=== PATIENT | female | born 1955 | race Caucasian/White ===

== ENCOUNTER 2022-01-27 17:13 | Emergency (ER) | payer MEDICARE ==
[2022-01-27] MEDS ORDERED: Sodium Chloride 0.9% 10 ML Syringe FLUSH PRN (17:42)
== END 2022-01-27 19:52 | disposition home or self-care (01) ==
LOC: JD.ED 17:13
DX: J90 Pleural effusion, not elsewhere classified (principal); I10 Essential (primary) hypertension; Z88.8 Allergy status to other drugs, medicaments and biological substances; Z79.01 Long term (current) use of anticoagulants; Z79.899 Other long term (current) drug therapy
CPT/HCPCS: 36415; 71046; 71046-26; 80053; 85025; 85610; 99284; 99285-25

== ENCOUNTER 2022-01-30 15:34 | Emergency (ER) | payer MEDICARE ==
[~2022-01-30 15:34] MED LIST: Lidocaine 1% with EPINEPHrine 1:100,000 20 ML MDV INJECT ONE
== END 2022-01-30 16:30 ==
LOC: JD.ED 15:34
DX: J90 Pleural effusion, not elsewhere classified (principal)
CPT/HCPCS: 32554; 71045; 71045-26; 99283-25; 99285

== ENCOUNTER 2022-02-13 12:25 | Emergency (ER) | payer MEDICARE | END 2022-02-13 20:00 | disposition home or self-care (01) | LOC: JD.ED 12:25 | DX: J90 Pleural effusion, not elsewhere classified (principal); I10 Essential (primary) hypertension; Z88.8 Allergy status to other drugs, medicaments and biological substances; Z79.01 Long term (current) use of anticoagulants; Z79.899 Other long term (current) drug therapy; Z86.16 Personal history of COVID-19 | CPT/HCPCS: 32554; 71045; 71045-26; 71046; 71046-26; 99283; 99284-25 ==

== ENCOUNTER 2022-02-23 09:05 | Emergency (ER) | payer MEDICARE ==
[2022-02-23] MEDS ORDERED: Morphine 2 MG/ML SYRINGE IVPUSH ONE (13:51)
== END 2022-02-23 14:48 ==
LOC: JD.ED 09:05
DX: J90 Pleural effusion, not elsewhere classified (principal); I10 Essential (primary) hypertension; Z79.01 Long term (current) use of anticoagulants; Z79.899 Other long term (current) drug therapy; Z88.8 Allergy status to other drugs, medicaments and biological substances
CPT/HCPCS: 36415; 71045; 80053; 84484; 85025; 93005; 96374; 99285; J2270

== ENCOUNTER 2022-03-01 19:31 | Emergency (ER) | payer MEDICARE ==
[2022-03-01] MEDS ORDERED: Sodium Chloride 0.9% 1,000 ML IV ONE (20:14)
[2022-03-01] MEDS ORDERED: Ondansetron 4 MG/2 ML SDV IVPUSH ONE (20:14)
[2022-03-01] MEDS ORDERED: HYDROmorphone 0.5 MG/0.5 ML Syringe IVPUSH ONE ×2 (20:14→22:59)
== END 2022-03-01 23:24 | disposition home or self-care (01) ==
LOC: JD.ED 19:31
DX: G89.3 Neoplasm related pain (acute) (chronic) (principal); R11.0 Nausea; I10 Essential (primary) hypertension; Z79.01 Long term (current) use of anticoagulants; Z79.899 Other long term (current) drug therapy; Z88.8 Allergy status to other drugs, medicaments and biological substances
CPT/HCPCS: 36415; 80053; 83735; 85025; 96374; 96375; 96376; 99284; J1170; J2405; J7030

== ENCOUNTER 2022-03-07 06:08 | Emergency (ER) | payer MEDICARE | END 2022-03-07 08:22 | disposition home or self-care (01) | LOC: JD.ED 06:08 | DX: J91.0 Malignant pleural effusion (principal); I10 Essential (primary) hypertension; Z88.8 Allergy status to other drugs, medicaments and biological substances; Z79.01 Long term (current) use of anticoagulants; Z79.899 Other long term (current) drug therapy | CPT/HCPCS: 36415; 71045; 71045-26; 85610; 99284; 99285-25 ==

== ENCOUNTER 2022-03-13 06:47 | Inpatient (IN) | payer MEDICARE, MEDICAID ==
[2022-03-13] MEDS ORDERED: Morphine 2 MG/ML SYRINGE IVPUSH ONE ×2 (09:07→10:25)
[2022-03-13 09:53] LABS: ESTIMATED GFR > 60 mL/min (>60)
[2022-03-13] MEDS: Ondansetron 4 MG Tab.DIS PO PRN (12:59)
[2022-03-13] MEDS: HYDROmorphone 0.5 MG/0.5 ML Syringe IVPUSH PRN ×3 (12:59→17:22)
[2022-03-13] MEDS: Nortriptyline 25 MG Cap PO SCH (17:22)
[2022-03-13] MEDS: Apixaban 5 MG Tab PO SCH (21:31)
[2022-03-13] MEDS: oxyCODONE ER 10 MG TAB.ER PO SCH (21:31)
[2022-03-13] MEDS: oxyCODONE ER 20 MG TAB.ER PO SCH (21:32)
[2022-03-14] MEDS ORDERED: Bisacodyl 10 MG Supp RECTAL ONE (02:48)
[2022-03-14] MEDS: HYDROmorphone 0.5 MG/0.5 ML Syringe IVPUSH PRN ×2 (02:58→05:43)
[2022-03-14 06:38] LABS: ESTIMATED GFR > 60 mL/min (>60)
[2022-03-14] MEDS: HYDROmorphone 1 MG/ML Syringe IVPUSH PRN ×4 (08:03→22:24)
[2022-03-14] MEDS: oxyCODONE ER 20 MG TAB.ER PO SCH ×2 (09:06→20:40)
[2022-03-14] MEDS: oxyCODONE ER 10 MG TAB.ER PO SCH ×2 (09:07→20:43)
[2022-03-14] MEDS: Lisinopril 20 MG Tab PO SCH (09:08)
[2022-03-14] MEDS: Apixaban 5 MG Tab PO SCH ×2 (09:09→20:40)
[2022-03-14] MEDS: Spironolactone 25 MG Tab PO SCH (09:10)
[2022-03-14] MEDS: Dexamethasone 1 MG/ML Oral Drops 30 ML Bottle PO SCH (09:10)
[2022-03-14] MEDS: Ondansetron 4 MG Tab.DIS PO PRN (14:28)
[2022-03-14] MEDS: Nortriptyline 25 MG Cap PO SCH (17:59)
[2022-03-14] MEDS: Pravastatin 20 MG Tab PO SCH (20:40)
[2022-03-15] MEDS: HYDROmorphone 1 MG/ML Syringe IVPUSH PRN ×5 (04:50→23:26)
[2022-03-15] MEDS ORDERED: Bisacodyl 10 MG Supp RECTAL ONE (06:55)
[2022-03-15 08:54] LABS: ESTIMATED GFR > 60 mL/min (>60)
[2022-03-15] MEDS: oxyCODONE ER 20 MG TAB.ER PO SCH (09:18)
[2022-03-15] MEDS: oxyCODONE ER 10 MG TAB.ER PO SCH (09:19)
[2022-03-15] MEDS: Spironolactone 25 MG Tab PO SCH (09:21)
[2022-03-15] MEDS: Lisinopril 20 MG Tab PO SCH (09:21)
[2022-03-15] MEDS: Apixaban 5 MG Tab PO SCH ×2 (09:21→20:37)
[2022-03-15] MEDS: Dexamethasone 1 MG/ML Oral Drops 30 ML Bottle PO SCH (09:22)
[2022-03-15] MEDS: fentaNYL 75 MCG/HR Transdermal Patch TRDERM SCH (11:59)
[2022-03-15] MEDS: Lubiprostone 24 MCG Cap PO SCH ×2 (13:12→17:28)
[2022-03-15] MEDS: Nortriptyline 25 MG Cap PO SCH (17:33)
[2022-03-15] MEDS: Pravastatin 20 MG Tab PO SCH (20:37)
[2022-03-15] MEDS: oxyCODONE 5 MG Tab PO SCH (20:37)
[2022-03-16] MEDS: oxyCODONE 5 MG Tab PO SCH ×7 (02:45→23:44)
[2022-03-16] MEDS: HYDROmorphone 1 MG/ML Syringe IVPUSH PRN ×6 (06:48→23:45)
[2022-03-16 07:18] LABS: ESTIMATED GFR > 60 mL/min (>60)
[2022-03-16] MEDS: Apixaban 5 MG Tab PO SCH ×2 (08:31→20:07)
[2022-03-16] MEDS: Lisinopril 20 MG Tab PO SCH (08:34)
[2022-03-16] MEDS: Spironolactone 25 MG Tab PO SCH (08:34)
[2022-03-16] MEDS: Dexamethasone 1 MG/ML Oral Drops 30 ML Bottle PO SCH (08:35)
[2022-03-16] MEDS: Lubiprostone 24 MCG Cap PO SCH ×2 (11:04→18:10)
[2022-03-16] MEDS: Nortriptyline 25 MG Cap PO SCH (18:10)
[2022-03-16] MEDS: Pravastatin 20 MG Tab PO SCH (20:07)
[2022-03-17] MEDS: HYDROmorphone 1 MG/ML Syringe IVPUSH PRN ×7 (03:06→22:11)
[2022-03-17] MEDS: oxyCODONE 5 MG Tab PO SCH ×5 (03:06→20:51)
[2022-03-17] MEDS: Ondansetron 4 MG Tab.DIS PO PRN (06:12)
[2022-03-17] MEDS: Lisinopril 20 MG Tab PO SCH ×2 (07:55→08:23)
[2022-03-17] MEDS: Dexamethasone 1 MG/ML Oral Drops 30 ML Bottle PO SCH ×2 (07:56→08:23)
[2022-03-17] MEDS: Apixaban 5 MG Tab PO SCH ×3 (07:56→20:53)
[2022-03-17] MEDS: Spironolactone 25 MG Tab PO SCH ×2 (07:56→08:23)
[2022-03-17] MEDS: Lubiprostone 24 MCG Cap PO SCH ×2 (12:11→16:31)
[2022-03-17] MEDS: Nortriptyline 25 MG Cap PO SCH (18:05)
[2022-03-17] MEDS: Pravastatin 20 MG Tab PO SCH (20:53)
[2022-03-18] MEDS: oxyCODONE 5 MG Tab PO SCH ×6 (00:43→20:23)
[2022-03-18] MEDS: HYDROmorphone 1 MG/ML Syringe IVPUSH PRN ×3 (06:31→22:00)
[2022-03-18 06:45] LABS: ESTIMATED GFR > 60 mL/min (>60)
[2022-03-18] MEDS: Dexamethasone 1 MG/ML Oral Drops 30 ML Bottle PO SCH (09:30)
[2022-03-18] MEDS: Spironolactone 25 MG Tab PO SCH (09:30)
[2022-03-18] MEDS: Lisinopril 20 MG Tab PO SCH (09:30)
[2022-03-18] MEDS: Apixaban 5 MG Tab PO SCH ×2 (09:30→20:24)
[2022-03-18] MEDS: LORazepam 2 MG/ML SDV IVPUSH PRN (11:19)
[2022-03-18] MEDS: Lubiprostone 24 MCG Cap PO SCH ×2 (12:07→18:21)
[2022-03-18] MEDS: fentaNYL 75 MCG/HR Transdermal Patch TRDERM SCH (15:37)
[2022-03-18] MEDS: Nortriptyline 25 MG Cap PO SCH (18:20)
[2022-03-18] MEDS: Pravastatin 20 MG Tab PO SCH (20:25)
[2022-03-19] MEDS: oxyCODONE 5 MG Tab PO SCH ×6 (00:41→20:51)
[2022-03-19] MEDS: Dexamethasone 1 MG/ML Oral Drops 30 ML Bottle PO SCH ×2 (07:38→09:07)
[2022-03-19] MEDS: Spironolactone 25 MG Tab PO SCH ×2 (07:39→09:07)
[2022-03-19] MEDS: Apixaban 5 MG Tab PO SCH ×3 (07:39→20:53)
[2022-03-19] MEDS: HYDROmorphone 1 MG/ML Syringe IVPUSH PRN ×3 (07:51→15:29)
[2022-03-19] MEDS: Lisinopril 20 MG Tab PO SCH (09:07)
[2022-03-19] MEDS: Bisacodyl 10 MG Supp RECTAL PRN (11:15)
[2022-03-19] MEDS: Lubiprostone 24 MCG Cap PO SCH ×2 (12:11→17:14)
[2022-03-19] MEDS: Nortriptyline 25 MG Cap PO SCH (18:23)
[2022-03-19] MEDS: Pravastatin 20 MG Tab PO SCH (20:52)
[2022-03-19] MEDS: LORazepam 2 MG/ML SDV IVPUSH PRN (20:54)
[2022-03-20] MEDS: oxyCODONE 5 MG Tab PO SCH ×6 (00:57→20:56)
[2022-03-20 07:23] LABS: ESTIMATED GFR > 60 mL/min (>60)
[2022-03-20] MEDS: HYDROmorphone 1 MG/ML Syringe IVPUSH PRN ×2 (07:35→11:53)
[2022-03-20] MEDS: Dexamethasone 1 MG/ML Oral Drops 30 ML Bottle PO SCH (08:39)
[2022-03-20] MEDS: Apixaban 5 MG Tab PO SCH ×2 (08:45→20:57)
[2022-03-20] MEDS: Spironolactone 25 MG Tab PO SCH (08:45)
[2022-03-20] MEDS: Lisinopril 20 MG Tab PO SCH (08:48)
[2022-03-20] MEDS ORDERED: Magnesium Sulfate/Water 2 GM in Premix Bag 1 BAG IV ONE (09:00)
[2022-03-20] MEDS: Lubiprostone 24 MCG Cap PO SCH ×2 (11:54→16:59)
[2022-03-20] MEDS: fentaNYL 100 MCG/HR Transdermal Patch TRDERM SCH (13:02)
[2022-03-20] MEDS: Nortriptyline 25 MG Cap PO SCH (18:04)
[2022-03-20] MEDS: Polyethylene Glycol 3350 Powder 17 GM Packet PO SCH (18:04)
[2022-03-20] MEDS: Pravastatin 20 MG Tab PO SCH (20:57)
[2022-03-21] MEDS: oxyCODONE 5 MG Tab PO SCH ×6 (00:40→20:34)
[2022-03-21] MEDS: HYDROmorphone 1 MG/ML Syringe IVPUSH PRN ×3 (05:48→19:53)
[2022-03-21 07:04] LABS: ESTIMATED GFR > 60 mL/min (>60)
[2022-03-21] MEDS: Apixaban 5 MG Tab PO SCH ×2 (08:30→20:35)
[2022-03-21] MEDS: Polyethylene Glycol 3350 Powder 17 GM Packet PO SCH (08:31)
[2022-03-21] MEDS: Dexamethasone 1 MG/ML Oral Drops 30 ML Bottle PO SCH (08:33)
[2022-03-21] MEDS: Lubiprostone 24 MCG Cap PO SCH ×2 (11:52→16:45)
[2022-03-21] MEDS: LORazepam 0.5 MG Tab PO PRN (18:06)
[2022-03-21] MEDS: Nortriptyline 25 MG Cap PO SCH (19:01)
[2022-03-21] MEDS: Pravastatin 20 MG Tab PO SCH (20:35)
[2022-03-21] MEDS: Ondansetron 4 MG Tab.DIS PO PRN (20:35)
[2022-03-22] MEDS: oxyCODONE 5 MG Tab PO SCH ×7 (00:32→23:25)
[2022-03-22] MEDS: Apixaban 5 MG Tab PO SCH ×2 (08:09→19:59)
[2022-03-22] MEDS: Dexamethasone 1 MG/ML Oral Drops 30 ML Bottle PO SCH (08:10)
[2022-03-22] MEDS: Polyethylene Glycol 3350 Powder 17 GM Packet PO SCH (08:10)
[2022-03-22] MEDS: Lubiprostone 24 MCG Cap PO SCH ×2 (11:08→16:05)
[2022-03-22] MEDS: HYDROmorphone 1 MG/ML Syringe IVPUSH PRN ×2 (11:55→18:21)
[2022-03-22] MEDS: Nortriptyline 25 MG Cap PO SCH (17:37)
[2022-03-22] MEDS: Pravastatin 20 MG Tab PO SCH (19:59)
[2022-03-23] MEDS: HYDROmorphone 1 MG/ML Syringe IVPUSH PRN ×3 (03:13→17:33)
[2022-03-23] MEDS: Ondansetron 4 MG Tab.DIS PO PRN (03:14)
[2022-03-23] MEDS: oxyCODONE 5 MG Tab PO SCH ×5 (04:23→21:01)
[2022-03-23] MEDS: Polyethylene Glycol 3350 Powder 17 GM Packet PO SCH (08:03)
[2022-03-23] MEDS: Apixaban 5 MG Tab PO SCH ×2 (08:03→21:02)
[2022-03-23] MEDS: Dexamethasone 1 MG/ML Oral Drops 30 ML Bottle PO SCH (08:06)
[2022-03-23] MEDS: Lubiprostone 24 MCG Cap PO SCH ×2 (12:45→16:15)
[2022-03-23] MEDS: fentaNYL 100 MCG/HR Transdermal Patch TRDERM SCH (12:48)
[2022-03-23] MEDS: Nortriptyline 25 MG Cap PO SCH (17:14)
[2022-03-23] MEDS: Pravastatin 20 MG Tab PO SCH (21:02)
[2022-03-24] MEDS: oxyCODONE 5 MG Tab PO SCH ×6 (00:22→19:58)
[2022-03-24] MEDS: HYDROmorphone 1 MG/ML Syringe IVPUSH PRN ×4 (04:43→20:01)
[2022-03-24] MEDS: Polyethylene Glycol 3350 Powder 17 GM Packet PO SCH (08:00)
[2022-03-24] MEDS: Apixaban 5 MG Tab PO SCH ×2 (08:00→19:59)
[2022-03-24] MEDS: Bisacodyl 10 MG Supp RECTAL PRN (08:01)
[2022-03-24] MEDS: Dexamethasone 1 MG/ML Oral Drops 30 ML Bottle PO SCH (08:02)
[2022-03-24] MEDS ORDERED: fentaNYL 25 MCG/HR Transdermal Patch TRDERM SCH (09:00)
[2022-03-24] MEDS: Lubiprostone 24 MCG Cap PO SCH ×2 (11:31→16:07)
[2022-03-24] MEDS ORDERED: guaiFENesin 600 MG Tab.ER PO ONE (13:30)
[2022-03-24] MEDS: Nortriptyline 25 MG Cap PO SCH (17:41)
[2022-03-24] MEDS: Pravastatin 20 MG Tab PO SCH (20:00)
[2022-03-25] MEDS: oxyCODONE 5 MG Tab PO SCH ×6 (01:00→20:48)
[2022-03-25] MEDS: HYDROmorphone 1 MG/ML Syringe IVPUSH PRN ×4 (02:02→21:35)
[2022-03-25] MEDS: Polyethylene Glycol 3350 Powder 17 GM Packet PO SCH ×2 (08:59→20:49)
[2022-03-25] MEDS: Dexamethasone 1 MG/ML Oral Drops 30 ML Bottle PO SCH (09:00)
[2022-03-25] MEDS: Apixaban 5 MG Tab PO SCH ×2 (09:00→20:48)
[2022-03-25] MEDS: Fluticasone NASAL Spray 16 GM Bottle NASBOTH SCH (09:13)
[2022-03-25] MEDS: LORazepam 0.5 MG Tab PO PRN (10:29)
[2022-03-25] MEDS: Lubiprostone 24 MCG Cap PO SCH ×2 (12:04→16:36)
[2022-03-25] MEDS: Nortriptyline 25 MG Cap PO SCH (18:06)
[2022-03-25] MEDS: Pravastatin 20 MG Tab PO SCH (20:49)
[2022-03-26] MEDS: oxyCODONE 5 MG Tab PO SCH ×6 (00:58→20:37)
[2022-03-26] MEDS: LORazepam 0.5 MG Tab PO PRN ×2 (03:22→18:02)
[2022-03-26] MEDS: Fluticasone NASAL Spray 16 GM Bottle NASBOTH SCH (08:40)
[2022-03-26] MEDS: Apixaban 5 MG Tab PO SCH ×2 (08:40→20:37)
[2022-03-26] MEDS: Polyethylene Glycol 3350 Powder 17 GM Packet PO SCH ×2 (08:40→20:37)
[2022-03-26] MEDS: Dexamethasone 1 MG/ML Oral Drops 30 ML Bottle PO SCH (08:40)
[2022-03-26] MEDS: HYDROmorphone 1 MG/ML Syringe IVPUSH PRN ×3 (08:47→20:34)
[2022-03-26] MEDS: Lubiprostone 24 MCG Cap PO SCH ×2 (11:54→16:16)
[2022-03-26] MEDS: fentaNYL 100 MCG/HR Transdermal Patch TRDERM SCH (11:55)
[2022-03-26] MEDS: fentaNYL 25 MCG/HR Transdermal Patch TRDERM SCH (11:55)
[2022-03-26] MEDS: [UNRECOGNIZED DRUG - REMARK] TRDERM SCH (11:57)
[2022-03-26] MEDS: Nortriptyline 25 MG Cap PO SCH (18:02)
[2022-03-26] MEDS: Pravastatin 20 MG Tab PO SCH (20:36)
[2022-03-27] MEDS: oxyCODONE 5 MG Tab PO SCH ×4 (00:14→20:50)
[2022-03-27] MEDS: HYDROmorphone 1 MG/ML Syringe IVPUSH PRN ×2 (06:11→15:06)
[2022-03-27] MEDS: Polyethylene Glycol 3350 Powder 17 GM Packet PO SCH ×2 (08:36→20:53)
[2022-03-27] MEDS: Fluticasone NASAL Spray 16 GM Bottle NASBOTH SCH (08:36)
[2022-03-27] MEDS: Apixaban 5 MG Tab PO SCH ×2 (08:36→20:52)
[2022-03-27] MEDS ORDERED: oxyCODONE 5 MG Tab PO SCH (12:00)
[2022-03-27] MEDS: Dexamethasone 1 MG/ML Oral Drops 30 ML Bottle PO SCH (12:37)
[2022-03-27] MEDS: Lubiprostone 24 MCG Cap PO SCH ×2 (12:37→16:50)
[2022-03-27] MEDS: LORazepam 0.5 MG Tab PO PRN (14:36)
[2022-03-27] MEDS ORDERED: oxyCODONE 5 MG Tab PO PRN (18:43)
[2022-03-27] MEDS: Nortriptyline 25 MG Cap PO SCH (18:50)
[2022-03-27] MEDS: Pravastatin 20 MG Tab PO SCH (20:51)
[2022-03-28] MEDS: oxyCODONE 5 MG Tab PO SCH ×7 (00:34→23:09)
[2022-03-28] MEDS: Apixaban 5 MG Tab PO SCH ×2 (08:11→20:01)
[2022-03-28] MEDS: Polyethylene Glycol 3350 Powder 17 GM Packet PO SCH ×2 (08:12→20:01)
[2022-03-28] MEDS: Dexamethasone 1 MG/ML Oral Drops 30 ML Bottle PO SCH (08:12)
[2022-03-28] MEDS: Fluticasone NASAL Spray 16 GM Bottle NASBOTH SCH (08:13)
[2022-03-28] MEDS: Lubiprostone 24 MCG Cap PO SCH ×2 (11:52→17:30)
[2022-03-28] MEDS: Ondansetron 4 MG Tab.DIS PO PRN (13:10)
[2022-03-28] MEDS: LORazepam 0.5 MG Tab PO PRN (13:27)
[2022-03-28] MEDS: Nortriptyline 25 MG Cap PO SCH (17:30)
[2022-03-28] MEDS: Pravastatin 20 MG Tab PO SCH (20:00)
[2022-03-28] MEDS: Lisinopril 20 MG Tab PO SCH (20:01)
[2022-03-29] MEDS: LORazepam 0.5 MG Tab PO PRN ×3 (01:37→20:25)
[2022-03-29] MEDS: oxyCODONE 5 MG Tab PO SCH ×6 (03:35→23:24)
[2022-03-29] MEDS: Polyethylene Glycol 3350 Powder 17 GM Packet PO SCH ×2 (08:08→20:17)
[2022-03-29] MEDS: Apixaban 5 MG Tab PO SCH ×2 (08:09→20:19)
[2022-03-29] MEDS: Fluticasone NASAL Spray 16 GM Bottle NASBOTH SCH (08:09)
[2022-03-29] MEDS: Lisinopril 20 MG Tab PO SCH (08:09)
[2022-03-29] MEDS: Dexamethasone 1 MG/ML Oral Drops 30 ML Bottle PO SCH (08:10)
[2022-03-29] MEDS: Ondansetron 4 MG Tab.DIS PO PRN (10:57)
[2022-03-29] MEDS: Lidocaine 4% 1 each Patch TOP SCH (12:41)
[2022-03-29] MEDS: fentaNYL 25 MCG/HR Transdermal Patch TRDERM SCH (12:42)
[2022-03-29] MEDS: Lubiprostone 24 MCG Cap PO SCH ×2 (12:42→17:54)
[2022-03-29] MEDS: fentaNYL 100 MCG/HR Transdermal Patch TRDERM SCH (12:47)
[2022-03-29] MEDS: [UNRECOGNIZED DRUG - REMARK] TRDERM SCH (13:11)
[2022-03-29] MEDS: Nortriptyline 25 MG Cap PO SCH (17:54)
[2022-03-29] MEDS: guaiFENesin 600 MG Tab.ER PO SCH (20:19)
[2022-03-29] MEDS: Pravastatin 20 MG Tab PO SCH (20:20)
[2022-03-30] MEDS: oxyCODONE 5 MG Tab PO SCH ×6 (03:18→23:36)
[2022-03-30] MEDS: Apixaban 5 MG Tab PO SCH ×2 (08:31→20:08)
[2022-03-30] MEDS: Lisinopril 20 MG Tab PO SCH (08:31)
[2022-03-30] MEDS: Fluticasone NASAL Spray 16 GM Bottle NASBOTH SCH (08:35)
[2022-03-30] MEDS: Dexamethasone 1 MG/ML Oral Drops 30 ML Bottle PO SCH (08:35)
[2022-03-30] MEDS: Lidocaine 4% 1 each Patch TOP SCH (08:36)
[2022-03-30] MEDS: guaiFENesin 600 MG Tab.ER PO SCH ×2 (08:37→20:08)
[2022-03-30] MEDS: Polyethylene Glycol 3350 Powder 17 GM Packet PO SCH ×2 (08:37→20:07)
[2022-03-30] MEDS: LORazepam 0.5 MG Tab PO PRN ×2 (09:28→18:24)
[2022-03-30] MEDS: Lubiprostone 24 MCG Cap PO SCH ×2 (12:16→18:45)
[2022-03-30] MEDS: Nortriptyline 25 MG Cap PO SCH (17:53)
[2022-03-30] MEDS: Pravastatin 20 MG Tab PO SCH (20:08)
[2022-03-31] MEDS: LORazepam 0.5 MG Tab PO PRN ×2 (03:40→13:35)
[2022-03-31] MEDS: oxyCODONE 5 MG Tab PO SCH ×4 (03:40→16:32)
[2022-03-31] MEDS: Apixaban 5 MG Tab PO SCH (08:32)
[2022-03-31] MEDS: guaiFENesin 600 MG Tab.ER PO SCH (08:32)
[2022-03-31] MEDS: Polyethylene Glycol 3350 Powder 17 GM Packet PO SCH (08:33)
[2022-03-31] MEDS: Dexamethasone 1 MG/ML Oral Drops 30 ML Bottle PO SCH (08:33)
[2022-03-31] MEDS: Lidocaine 4% 1 each Patch TOP SCH (08:33)
[2022-03-31] MEDS: Fluticasone NASAL Spray 16 GM Bottle NASBOTH SCH (08:33)
[2022-03-31] MEDS ORDERED: Citalopram 20 MG Tab PO SCH (09:00)
[2022-03-31] MEDS: Lisinopril 20 MG Tab PO SCH (10:07)
[2022-03-31] MEDS: Lubiprostone 24 MCG Cap PO SCH ×2 (12:33→18:11)
[2022-03-31] MEDS: Ondansetron 4 MG Tab.DIS PO PRN (13:13)
[2022-03-31] MEDS ORDERED: Citalopram 20 MG Tab PO ONE (13:29)
[2022-03-31] MEDS: Nortriptyline 25 MG Cap PO SCH (18:11)
[2022-04-01] MEDS ORDERED: Citalopram 20 MG Tab PO SCH (09:00)
[2022-04-01] MEDS ORDERED: Dexamethasone 4 MG Tab PO SCH ×2 (09:00)
== END 2022-03-31 19:25 | disposition home health service (06) | DRG 598 ==
LOC: JD.ED 06:47 → JD.MS 10:38
PROVIDERS: ADMIT Internal Medicine; ATTEND Internal Medicine
DX: C50.919 Malignant neoplasm of unspecified site of unspecified female breast (principal); C79.51 Secondary malignant neoplasm of bone; Z85.3 Personal history of malignant neoplasm of breast; J91.0 Malignant pleural effusion; D84.9 Immunodeficiency, unspecified; E87.1 Hypo-osmolality and hyponatremia; G89.3 Neoplasm related pain (acute) (chronic); I10 Essential (primary) hypertension; F31.9 Bipolar disorder, unspecified; F43.10 Post-traumatic stress disorder, unspecified; H54.7 Unspecified visual loss; F43.0 Acute stress reaction; F41.1 Generalized anxiety disorder; K59.09 Other constipation; E66.9 Obesity, unspecified; Z79.01 Long term (current) use of anticoagulants; Z86.19 Personal history of other infectious and parasitic diseases; Z79.899 Other long term (current) drug therapy; Z90.49 Acquired absence of other specified parts of digestive tract; Z88.8 Allergy status to other drugs, medicaments and biological substances; Z86.16 Personal history of COVID-19; Z90.89 Acquired absence of other organs; Z87.440 Personal history of urinary (tract) infections; Z98.890 Other specified postprocedural states
CPT/HCPCS: 36415; 71045; 80053; 84484; 85025; 96374; 99285; J2270; 76705; 76705-26; 80048; 83735; 85027; 86140; 93005; 93010; 94760; 94761; 97116-GP; 97161-GP; 97162-GP; A9270-GY; J1170; J2060; J3475

== ENCOUNTER 2022-04-01 10:54 | Inpatient (IN) | payer MEDICARE, MEDICAID ==
[2022-04-01 12:12] LABS: ESTIMATED GFR 18 mL/min (>60)
[2022-04-01] MEDS ORDERED: LORazepam 1 MG Tab PO ONE (12:23)
[2022-04-01] MEDS ORDERED: Sodium Chloride 0.9% 1,000 ML IV ONE (12:53)
[2022-04-01] MEDS ORDERED: Sodium Chloride 0.9% 10 ML Syringe FLUSH PRN (12:53)
[2022-04-01] MEDS ORDERED: HYDROmorphone 0.5 MG/0.5 ML Syringe IVPUSH ONE (16:49)
[2022-04-01] MEDS ORDERED: oxyCODONE 5 MG Tab PO PRN (20:02)
[2022-04-01] MEDS ORDERED: Sodium Polystyrene Sulfonate 15 GM/60 ML Susp 60 ML Bot PO ONE (20:16)
[2022-04-01] MEDS ORDERED: fentaNYL 25 MCG/HR Transdermal Patch TRDERM SCH (21:00)
[2022-04-01] MEDS ORDERED: fentaNYL 100 MCG/HR Transdermal Patch TRDERM SCH (21:00)
[2022-04-01] MEDS: oxyCODONE 5 MG Tab PO SCH (21:27)
[2022-04-01] MEDS: Apixaban 5 MG Tab PO SCH (21:28)
[2022-04-01] MEDS: Polyethylene Glycol 3350 Powder 17 GM Packet PO SCH (21:29)
[2022-04-01] MEDS: guaiFENesin 600 MG Tab.ER PO SCH (21:29)
[2022-04-01] MEDS: Ondansetron 4 MG Tab.DIS PO PRN (21:35)
[2022-04-02] MEDS: oxyCODONE 5 MG Tab PO SCH ×7 (00:10→21:43)
[2022-04-02] MEDS: Fluticasone NASAL Spray 16 GM Bottle NASBOTH SCH (08:08)
[2022-04-02] MEDS: Dexamethasone 4 MG Tab PO SCH (08:09)
[2022-04-02] MEDS: guaiFENesin 600 MG Tab.ER PO SCH (08:09)
[2022-04-02] MEDS: Apixaban 5 MG Tab PO SCH (08:09)
[2022-04-02] MEDS: Citalopram 20 MG Tab PO SCH (08:09)
[2022-04-02] MEDS: Polyethylene Glycol 3350 Powder 17 GM Packet PO SCH (08:10)
[2022-04-02] MEDS: LORazepam 0.5 MG Tab PO PRN (08:17)
[2022-04-02] MEDS ORDERED: Lidocaine 4% 1 each Patch TOP SCH (09:00)
[2022-04-02] MEDS: Ondansetron 4 MG Tab.DIS PO PRN (10:37)
[2022-04-02] MEDS: Lubiprostone 24 MCG Cap PO SCH ×2 (11:12→16:55)
[2022-04-02] MEDS: Sodium Chloride 0.9% 1,000 ML IV SCH (12:37)
[2022-04-02] MEDS ORDERED: Ondansetron 4 MG/2 ML SDV IVPUSH PRN (14:30)
[2022-04-02] MEDS ORDERED: LORazepam 2 MG/ML SDV IVPUSH ONE (14:30)
[2022-04-02] MEDS: Nortriptyline 25 MG Cap PO SCH (17:00)
[2022-04-02] MEDS: Pravastatin 20 MG Tab PO SCH (17:00)
[2022-04-02] MEDS ORDERED: oxyCODONE 5 MG Tab PO PRN (18:28)
[2022-04-02] MEDS ORDERED: fentaNYL 75 MCG/HR Transdermal Patch TRDERM SCH (18:30)
[2022-04-02] MEDS: HYDROmorphone 0.5 MG/0.5 ML Syringe IVPUSH PRN (18:47)
[2022-04-02] MEDS: LORazepam 2 MG/ML SDV IVPUSH PRN (18:49)
[2022-04-02] MEDS ORDERED: Calcium Gluconate 1 GM in Dextrose 5% in Water 100 ML IV ONE ×2 (20:48)
[2022-04-02] MEDS ORDERED: Sodium Chloride 0.9% 10 ML Syringe FLUSH PRN (20:48)
[2022-04-02] MEDS ORDERED: 50% Dextrose in Water 50 ML Syringe IV ONE (20:48)
[2022-04-02] MEDS ORDERED: Albuterol 0.083% 2.5 MG/3 ML Neb Soln NEB ONE (20:48)
[2022-04-02] MEDS ORDERED: Insulin Regular, Human 100 Units/ML 3 ML Vial IVPUSH ONE (20:48)
[2022-04-02] MEDS ORDERED: Sodium Polystyrene Sulfonate 15 GM/60 ML Susp 60 ML Bot PO ONE (21:36)
[2022-04-03] MEDS: Apixaban 5 MG Tab PO SCH ×3 (00:52→21:45)
[2022-04-03] MEDS: guaiFENesin 600 MG Tab.ER PO SCH ×3 (00:52→20:57)
[2022-04-03] MEDS: oxyCODONE 5 MG Tab PO SCH ×7 (01:07→23:05)
[2022-04-03] MEDS: HYDROmorphone 0.5 MG/0.5 ML Syringe IVPUSH PRN ×3 (01:11→17:56)
[2022-04-03] MEDS: Polyethylene Glycol 3350 Powder 17 GM Packet PO SCH ×4 (01:34→21:45)
[2022-04-03] MEDS: LORazepam 0.5 MG Tab PO PRN ×2 (02:18→19:44)
[2022-04-03] MEDS: LORazepam 2 MG/ML SDV IVPUSH PRN ×2 (07:43→23:21)
[2022-04-03] MEDS: Citalopram 20 MG Tab PO SCH (10:17)
[2022-04-03] MEDS: Dexamethasone 4 MG Tab PO SCH (10:17)
[2022-04-03] MEDS: Fluticasone NASAL Spray 16 GM Bottle NASBOTH SCH (10:18)
[2022-04-03] MEDS: Sodium Chloride 0.9% 1,000 ML IV SCH (12:52)
[2022-04-03] MEDS: Lubiprostone 24 MCG Cap PO SCH ×2 (14:26→18:20)
[2022-04-03] MEDS: Pravastatin 20 MG Tab PO SCH (18:23)
[2022-04-03] MEDS: Nortriptyline 25 MG Cap PO SCH (18:23)
[2022-04-04] MEDS: oxyCODONE 5 MG Tab PO SCH ×3 (05:31→12:25)
[2022-04-04] MEDS: LORazepam 2 MG/ML SDV IVPUSH PRN (06:49)
[2022-04-04] MEDS: Fluticasone NASAL Spray 16 GM Bottle NASBOTH SCH (12:24)
[2022-04-04] MEDS: guaiFENesin 600 MG Tab.ER PO SCH (12:24)
[2022-04-04] MEDS: Apixaban 5 MG Tab PO SCH (12:24)
[2022-04-04] MEDS: Lubiprostone 24 MCG Cap PO SCH (12:24)
[2022-04-04] MEDS: Dexamethasone 4 MG Tab PO SCH (12:25)
[2022-04-04] MEDS: Polyethylene Glycol 3350 Powder 17 GM Packet PO SCH (12:25)
[2022-04-04] MEDS: Citalopram 20 MG Tab PO SCH (12:25)
[2022-04-04] MEDS ORDERED: Scopolamine 1.5 MG Transdermal Patch TOP ONE (15:00)
[2022-04-04] MEDS ORDERED: Atropine 1% Ophth Soln 5 ML BOTTLE SL PRN (17:20)
[2022-04-04] MEDS ORDERED: REMOVE FENTANYL TRDERM SCH ×3 (21:00)
== END 2022-04-05 08:35 | disposition expired | DRG 683 ==
LOC: JD.ED 10:54 → JD.MS 14:42
PROVIDERS: ADMIT Pediatrics; ATTEND Pediatrics
DX: N17.9 Acute kidney failure, unspecified (principal); C78.02 Secondary malignant neoplasm of left lung; C77.9 Secondary and unspecified malignant neoplasm of lymph node, unspecified; C78.7 Secondary malignant neoplasm of liver and intrahepatic bile duct; C79.51 Secondary malignant neoplasm of bone; S22.030A Wedge compression fracture of third thoracic vertebra, initial encounter for closed fracture; Z85.3 Personal history of malignant neoplasm of breast; E87.1 Hypo-osmolality and hyponatremia; I10 Essential (primary) hypertension; J91.0 Malignant pleural effusion; Z68.41 Body mass index [BMI] 40.0-44.9, adult; D84.9 Immunodeficiency, unspecified; C78.2 Secondary malignant neoplasm of pleura; C78.01 Secondary malignant neoplasm of right lung; N18.5 Chronic kidney disease, stage 5; C50.911 Malignant neoplasm of unspecified site of right female breast; Z66 Do not resuscitate; R09.2 Respiratory arrest; Z51.5 Encounter for palliative care; F41.1 Generalized anxiety disorder; F43.0 Acute stress reaction; G89.3 Neoplasm related pain (acute) (chronic); W19.XXXA Unspecified fall, initial encounter; H54.7 Unspecified visual loss; K59.09 Other constipation; E66.9 Obesity, unspecified; I12.9 Hypertensive chronic kidney disease with stage 1 through stage 4 chronic kidney disease, or unspecified chronic kidney disease; F31.9 Bipolar disorder, unspecified; F43.10 Post-traumatic stress disorder, unspecified; S90.829A Blister (nonthermal), unspecified foot, initial encounter; Z88.8 Allergy status to other drugs, medicaments and biological substances; Z79.899 Other long term (current) drug therapy; Z87.440 Personal history of urinary (tract) infections; Z98.890 Other specified postprocedural states; Z86.16 Personal history of COVID-19; Z79.01 Long term (current) use of anticoagulants; Z99.81 Dependence on supplemental oxygen; Z90.89 Acquired absence of other organs
CPT/HCPCS: 36415; 70450; 71250; 74176; 80053; 83735; 84484; 85025; 93005; 99285; A9270; J3490; J7030; 71045; 71045-26; 80048; 81001; 82947; 84100; 86140; 93010; 94761; 96374; 99233; 99238; J1170; J2060; J8540